=== PATIENT | female | born 1985 | race Caucasian/White ===

== ENCOUNTER 2024-08-05 10:40 | Emergency (ER) | payer OTHER ==
[~2024-08-05] VITALS: Ht 162.6 cm; Wt 75.9 kg
[2024-08-05 10:58] VITALS: TEMP 97.9
[2024-08-05 12:04] LABS: APPEARANCE,URINE CLEAR (CLEAR); BILIRUBIN,URINE NEGATIVE (NEGATIVE); COLOR,URINE COLORLESS (YELLOW); GLUCOSE, URINE (UA) NEGATIVE (NEGATIVE); KETONES,URINE NEGATIVE (NEGATIVE); LEUKOCYTE ESTERASE ,URINE NEGATIVE (NEGATIVE); NITRATE,URINE NEGATIVE (NEGATIVE); OCCULT BLOOD,URINE NEGATIVE (NEGATIVE); PROTEIN,URINE NEGATIVE (NEGATIVE); SPECIFIC GRAVITIY, URINE 1.003 (1.003-1.030); UROBILINOGEN,URINE <=1.0 mg/dL (<=1.0)
[2024-08-05] MEDS: PredniSONE 20 MG TABLET PO ONE (13:45)
[2024-08-05] MEDS: LIDOCAINE 5% TRANSDERMAL PATCH TD ONE (13:45)
[2024-08-05] MEDS: TraMADol HCL 50 MG TABLET PO ONE (13:51)
[2024-08-05 14:51] VITALS: BP 106/72; PULSE 72; RESP 18; O2SAT 100
[2024-08-05] MEDS ORDERED: TRAM50TA5 PO (15:02)
== END 2024-08-05 15:36 | disposition home or self-care (01) ==
LOC: EDSEX 10:44 → EMS 10:44
DX: M62.830 Muscle spasm of back (principal); Z88.0 Allergy status to penicillin
CPT/HCPCS: 99284; 81003; 84703; J7512